=== PATIENT | female | born 1990 | race Caucasian/White ===

== ENCOUNTER 2020-08-04 05:23 | Emergency (ER) | payer SELFPAY ==
[~2020-08-04] VITALS: Ht 152.4 cm; Wt 59.1 kg
--- NOTE | 2020-08-04 05:28 | PHYS DOC ---
Past History Past Medical History: Anxiety, Asthma Past Surgical History: Tubal ligation General Adult HPI: HPI: "..I woke up really short...of breath..my asthma acting up... my throat been sore the last couple days.. .. I ve got an inhaler..usually when I get like this I need a steroid..." Patient is a 29 year old female who presents with above history complaints of increased wheezing, cough, pharyngitis, malaise, and rhinorrhea. Patient to get flu vaccination for this season. No recent travel. No sick ill contacts. No recent hospital patients for asthma exacerbations. Has not been intubated for her asthma. Patient does have seasonal allergy. Patient does not smoke. Patient follows with Dr. Olivares Review of Systems: Review of Systems: Constitutional: Denies fever or chills Eyes: Denies change in visual acuity HENT: History of nasal congestion and sore throat Respiratory: History of cough and wheezing Cardiovascular: Denies chest pain or edema GI: Denies abdominal pain, nausea, vomiting, bloody stools or diarrhea : Denies dysuria Musculoskeletal: Denies back pain or joint pain Integument: Denies rash Neurologic: Denies headache, focal weakness or sensory changes Endocrine: Denies polyuria or polydipsia Lymphatic: Denies swollen glands Psychiatric: Denies depression or anxiety Heart Score: Risk Factors: Risk Factors: DM, Current or recent (<one month) smoker, HTN, HLP, family history of CAD, obesity. Risk Scores: Score 0 - 3: 2.5% MACE over next 6 weeks - Discharge Home Score 4 - 6: 20.3% MACE over next 6 weeks - Admit for Clinical Observation Score 7 - 10: 72.7% MACE over next 6 weeks - Early Invasive Strategies Family History: Family History: Noncontributory to presentation Current Medications: Current Meds: See nursing for home meds. Allergies: Allergies: No known drug allergies Physical Exam: PE: Constitutional: Well developed, well nourished, mild distress, non-toxic appearance. [] HENT: Normocephalic, atraumatic, bilateral external ears normal, oropharynx mo ist, no oral exudates, nose swollen turbinates and clear rhinorrhea Eyes: PERRLA, EOMI, conjunctiva normal, no discharge. [] Neck: Normal range of motion, no tenderness, supple, no stridor. [] Cardiovascular:Heart rate regular rhythm, no murmur [] Lungs & Thorax: Bilateral breath sounds equal apex few scattered wheezes on auscultation [] occasional coughing spasms. Abdomen: Bowel sounds normal, soft, no tenderness, no masses, no pulsatile masses. Old surgery scars Skin: Warm, dry, no erythema, no rash. [] Back: No tenderness, no CVA tenderness. [] Extremities: No tenderness, no cyanosis, no clubbing, ROM intact, no edema. [] No cording appreciated Neurologic: Alert and oriented X 3, normal motor function, normal sensory function, no focal deficits noted. [] Psychologic: Affect normal, judgement normal, mood normal. [] EKG: EKG: [] Radiology/Procedures: Radiology/Procedures: [] Course & Med Decision Making: Course & Med Decision Making Pertinent Labs and Imaging studies reviewed. (See chart for details) Patient take Tylenol ibuprofen as needed for discomfort. Patient self isolate if ill. Patient wear a mask that covers her nose and mouth at all times. Wash hands frequently. Follow-up primary care. Patient use MDI 2 puffs 4 times a day. Continue documenting peak flows. Pre-and post treatments. May take Benadryl 50 mg at 4 times a day for nasal drainage cough. Avoid illicit drugs. Follow-up urine cultures. Take Keflex 500 mg 3 times a day. Follow-up primary care. Impression: 1. Asthma exacerbation 2. Drug Screen + Marijuana and Cocaine 3. UTI [] Dragon Disclaimer: Dragon Disclaimer: This electronic medical record was generated, in whole or in part, using a voice recognition dictation system. Departure Departure: Disposition: 01 HOME/RESIDENCE PRIOR TO ADM Condition: STABLE Referrals: KAMAR OLIVARES (PCP) Scripts Cephalexin (KEFLEX) 500 Mg Capsule 500 MG PO TID for uti for 7 Days, BOTTLE Prov: PARVIN OCHOA MD 08/04/20 Justification of Admission: Justification of Admission: Justification of Admission Dx: N/A Dragon Disclaimer This chart was dictated in whole or in part using Voice Recognition software in a busy, high-work load, and often noisy Emergency Department environment. It may contain unintended and wholly unrecognized errors or omissions. Dragon Disclaimer This chart was dictated in whole or in part using Voice Recognition software in a busy, high-work load, and often noisy Emergency Department environment. It may contain unintended and wholly unrecognized errors or omissions. PARVIN OCHOA MD Aug 04, 2020 05:28
[2020-08-04 05:29] VITALS: BP 139/64
[2020-08-04] MEDS ORDERED: diphenhydrAMINE HCL 25 MG CAPSULE PO ONE (06:00)
[2020-08-04] MEDS ORDERED: ALBUTEROL SULFATE 8GM INHALER. INH ONE (06:00)
[2020-08-04] MEDS ORDERED: methylPREDNISolone ACETATE 40 MG/ML VIAL. IM ONE (06:00)
[2020-08-04 06:22] LABS: BARBITURATES NEG (NEG); BENZODIAZEPINES NEG (NEG); CANNABINOIDS POS (NEG); COCAINE POS (NEG); METHADONE NEG (NEG); OPIATES NEG (NEG); PHENCYCLIDINE NEG (NEG)
[2020-08-04 06:26] LABS: AMPHETAMINE/METHAMPHETAMINE NEG (NEG)
[2020-08-04 06:27] LABS: BILIRUBIN,URINE NEG (NEG); CLARITY,URINE TURBID; COLOR,URINE YELLOW; GLUCOSE,URINE NEG (NEG); NITRITE,URINE POS (NEG)
[2020-08-04 06:28] LABS: BACTERIA,URINE MANY /HPF (0-FEW); SQUAMOUS EPITHELIAL CELL,UR MOD /LPF
[2020-08-04 06:31] LABS: INFLUENZA A PATIENT NEGATIVE (NEGATIVE); INFLUENZA B PATIENT NEGATIVE (NEGATIVE)
[2020-08-04] MEDS ORDERED: CEPH-264 PO (06:37)
[2020-08-04] MEDS ORDERED: CEPHALEXIN 250 MG CAPSULE PO ONE (06:45)
== END 2020-08-04 06:45 | disposition home or self-care (01) ==
LOC: ER 05:23
DX: J45.901 Unspecified asthma with (acute) exacerbation (principal); N39.0 Urinary tract infection, site not specified; F12.10 Cannabis abuse, uncomplicated; F14.10 Cocaine abuse, uncomplicated
CPT/HCPCS: 36415; 80307; 81001; 81025; 87070; 87086; 87804; 87880; 94640; 96372; 99283; J1030; J7613; Q0163

== ENCOUNTER 2021-06-30 08:16 | Emergency (ER) | payer OTHER ==
[~2021-06-30] VITALS: Ht 124.5 cm; Wt 54.0 kg
[2021-06-30 08:16] VITALS: BP 126/71
[~2021-06-30 08:16] MED LIST: CEPH-264 PO
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
--- NOTE | 2021-06-30 08:50 | RAD ---
XR HAND_LEFT 3 VIEWS Clinical indications: Reason: middle finger pain status post trauma. Findings: No acute fracture or dislocation or osteolytic process is evident. No radiopaque foreign b marcus is evident. IMPRESSION: No acute osseous abnormality is evident. Electronically signed by: Martínez Gomez MD (06/30/2021 8:48 AM) [id number]
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
[2021-06-30] MEDS ORDERED: ONDANSETRON ODT 4 MG TAB.RAPDIS PO ONE (09:15)
== END 2021-06-30 10:18 | disposition home or self-care (01) ==
LOC: ER 08:16
DX: S00.83XA Contusion of other part of head, initial encounter (principal); J45.909 Unspecified asthma, uncomplicated; Z98.51 Tubal ligation status; V43.62XA Car passenger injured in collision with other type car in traffic accident, initial encounter; Y93.89 Activity, other specified; Y92.89 Other specified places as the place of occurrence of the external cause; Y99.8 Other external cause status
CPT/HCPCS: 70450; 72125; 73130; 99285; Q0162

== ENCOUNTER 2021-12-19 16:12 | Emergency (ER) | payer OTHER ==
[~2021-12-19] VITALS: Ht 124.5 cm; Wt 62.0 kg
[2021-12-19 16:12] VITALS: BP 107/71
[2021-12-19] MEDS ORDERED: HYDR-2759 PO (16:42)
[2021-12-19] MEDS ORDERED: LIDOCAINE 1% Multi-Dose 20 ML VIAL. ONE (16:42)
--- NOTE | 2021-12-19 16:44 | PHYS DOC ---
Past History Past Medical History: Anxiety, Asthma Past Surgical History: Tubal ligation Additional Past Surgical Histo: WISDOM TEETH Alcohol Use: None General Adult EDM: Chief Complaint: DENTAL PROBLEM HPI: HPI: 31-year-old female presents with right lower dental pain. She was seen by the dentist today and they were planning to do surgery next week. They gave her some prescriptions but this did not include pain medication. They advised her to come to the emergency room for IV antibiotics to kick start her treatment since they were unable to give those at the dental office. Patient has no other complaints this time. Review of Systems: Review of Systems: Constitutional: Denies fever or chills Eyes: Denies change in visual acuity HENT: Denies nasal congestion or sore throat Respiratory: Denies cough or shortness of breath Cardiovascular: Denies chest pain or edema GI: Denies abdominal pain, nausea, vomiting, bloody stools or diarrhea : Denies dysuria Musculoskeletal: Denies back pain or joint pain Integument: Denies rash Neurologic: Denies headache, focal weakness or sensory changes Endocrine: Denies polyuria or polydipsia Lymphatic: Denies swollen glands Psychiatric: Denies depression or anxiety Allergies: Allergies: Allergies Coded Allergies Type Severity Reaction Last Updated Verified Penicillins Allergy Unknown 06/30/21 Yes Physical Exam: PE: Constitutional: Well developed, well nourished, no acute distress, non-toxic appearance. [] HENT: Normocephalic, atraumatic, bilateral external ears normal, oropharynx moist, no oral exudates, nose normal. Significant dental erosion of tooth 31 and 30. Swelling of the right lower face, no palpable abscess. [] Eyes: PERRLA, EOMI, conjunctiva normal, no discharge. [] Neck: Normal range of motion, no tenderness, supple, no stridor. [] Cardiovascular: Heart rate regular rhythm, no murmur [] Lungs & Thorax: Bilateral breath sounds clear to auscultation [] Abdomen: Bowel sounds normal, soft, no tenderness, no masses, no pulsatile masses. [] Skin: Warm, dry, no erythema, no rash. [] Back: No tenderness, no CVA tenderness. [] Extremities: No tenderness, no cyanosis, no clubbing, ROM intact, no edema. [] Neurologic: Alert and oriented X 3, normal motor function, normal sensory function, no focal deficits noted. [] Psychologic: Affect tearful, judgement normal, mood normal. [] EKG: EKG: [] Radiology/Procedures: Radiology/Procedures: [] Heart Score: C/O Chest Pain: N/A Risk Factors: Risk Factors: DM, Current or recent (<one month) smoker, HTN, HLP, family history of CAD, obesity. Risk Scores: Score 0 - 3: 2.5% MACE over next 6 weeks - Discharge Home Score 4 - 6: 20.3% MACE over next 6 weeks - Admit for Clinical Observation Score 7 - 10: 72.7% MACE over next 6 weeks - Early Invasive Strategies Course & Med Decision Making: Course & Med Decision Making Pertinent Labs and Imaging studies reviewed. (See chart for details) The patient appears very uncomfortable. I will treat her with Abbot and 1 g of Rocephin IM in the emergency room. I will also discharge her with Abbot 5/325 for a couple days to help with her pain. She is stable for discharge at this time. [] Dragon Disclaimer: Negin Disclaimer: This electronic medical record was generated, in whole or in part, using a voice recognition dictation system. Departure Departure: Impression: Primary Impression: Pain, dental Additional Impression: Dental infection Disposition: HOME / SELF CARE / HOMELESS Condition: STABLE Referrals: KAMAR FLETCHER (PCP) Patient Instructions: Dental Pain, [id number] Scripts Hydrocodone/Acetaminophen (Hydrocodone-Acetamin 5-325 mg) 1 Each Tablet 1 EACH PO Q4-6HRS PRN for PAIN, #10 TAB Prov: LESVIA BAR DO 12/19/21 LESVIA BAR DO Dec 19, 2021 16:43
[2021-12-19] MEDS ORDERED: cefTRIAXone IM 1 GM VIAL IM ONE (16:45)
[2021-12-19] MEDS ORDERED: HYDROcodone/APAP 7.5/325MG 1 TAB TABLET PO ONE (16:45)
== END 2021-12-19 17:09 | disposition home or self-care (01) ==
LOC: ER 16:12
DX: K04.7 Periapical abscess without sinus (principal); J45.909 Unspecified asthma, uncomplicated; Z88.0 Allergy status to penicillin
CPT/HCPCS: 96372; 99283; J0696